=== PATIENT | female | born 1980 | race Asian ===

== ENCOUNTER 2017-11-15 17:49 | Emergency (ER) | payer BC ==
[~2017-11-15] VITALS: Ht 149.9 cm; Wt 79.4 kg
[2017-11-15 18:21] VITALS: BP 139/84; TEMP 98.1
== END 2017-11-15 18:22 | disposition home or self-care (01) ==
LOC: ED 17:49
DX: M54.9 Dorsalgia, unspecified (principal)
CPT/HCPCS: 99281

== ENCOUNTER 2018-10-24 09:52 | Outpatient (CLI) | payer BC | END 2018-10-24 19:03 | disposition home or self-care (01) | LOC: RAD 09:52 | DX: R06.02 Shortness of breath (principal) ==

== ENCOUNTER 2018-11-23 17:05 | Emergency (ER) | payer BC ==
[~2018-11-23] VITALS: Ht 149.9 cm; Wt 81.2 kg
[2018-11-23 18:59] LABS: PLATELET COUNT 362 K/uL (152-353)
[2018-11-23 19:28] VITALS: BP 129/74; TEMP 99.1
== END 2018-11-23 19:29 | disposition home or self-care (01) ==
LOC: ED 17:05
PROVIDERS: Emergency Medicine
DX: B34.9 Viral infection, unspecified (principal); J45.909 Unspecified asthma, uncomplicated
CPT/HCPCS: 85027; 94664; 99285

== ENCOUNTER 2021-06-17 09:58 | Outpatient (CLI) | payer BC | END 2021-06-17 19:36 | disposition home or self-care (01) | LOC: MAMMO 09:58 | PROVIDERS: ATTEND Obstetrics & Gynecology | DX: Z12.31 Encounter for screening mammogram for malignant neoplasm of breast (principal) ==

== ENCOUNTER 2021-07-07 09:30 | Outpatient (CLI) | payer BC, OTHER | END 2021-07-07 20:36 | disposition home or self-care (01) | LOC: LAB 09:30 | PROVIDERS: ATTEND Family Medicine | DX: U07.1 COVID-19 (principal); Z03.818 Encounter for observation for suspected exposure to other biological agents ruled out | CPT/HCPCS: 87635; G2023; U0003 ==

== ENCOUNTER 2021-07-21 09:40 | Outpatient (CLI) | payer BC, OTHER | END 2021-07-21 20:09 | disposition home or self-care (01) | LOC: LAB 09:40 | PROVIDERS: ATTEND Nurse Practitioner Family | DX: Z03.818 Encounter for observation for suspected exposure to other biological agents ruled out (principal) | CPT/HCPCS: 87635; G2023; U0003 ==

== ENCOUNTER 2021-11-16 15:13 | Emergency (ER) | payer BC ==
[~2021-11-16] VITALS: Ht 149.9 cm; Wt 72.6 kg
[2021-11-16 16:06] VITALS: TEMP 98.2
[2021-11-16 18:05] LABS: PLATELET COUNT 409 K/uL (152-353)
[2021-11-16 18:14] LABS: POTASSIUM 3.7 mmol/L (3.6-5.2)
[2021-11-16 20:00] VITALS: BP 114/81
== END 2021-11-16 20:20 | disposition home or self-care (01) ==
LOC: ED 15:13
PROVIDERS: Emergency Medicine
DX: B34.9 Viral infection, unspecified (principal); J06.9 Acute upper respiratory infection, unspecified; Z20.822 Contact with and (suspected) exposure to COVID-19
CPT/HCPCS: 80053; 85027; 87502; 87635; 87651; 96372; 99283; J1885; U0003

== ENCOUNTER 2022-07-27 10:09 | Outpatient (CLI) | payer BC | END 2022-07-27 23:23 | disposition home or self-care (01) | LOC: MAMMO 10:09 | PROVIDERS: ATTEND Family Medicine | DX: Z12.31 Encounter for screening mammogram for malignant neoplasm of breast (principal) ==

== ENCOUNTER 2022-10-18 01:00 | Emergency (ER) | payer BC ==
[~2022-10-18] VITALS: Ht 149.9 cm; Wt 74.8 kg
[2022-10-18 01:05] VITALS: BP 129/80; TEMP 98
[2022-10-18 02:04] LABS: POTASSIUM 3.4 mmol/L (3.6-5.2)
[2022-10-18 02:11] LABS: PLATELET COUNT 443 K/uL (152-353)
== END 2022-10-18 05:12 | disposition home or self-care (01) ==
LOC: ED 01:00
PROVIDERS: Emergency Medicine Emergency Medical Services
DX: U07.1 COVID-19 (principal); R07.89 Other chest pain; J20.9 Acute bronchitis, unspecified; Z20.822 Contact with and (suspected) exposure to COVID-19
CPT/HCPCS: 36415; 80053; 84484; 85027; 85610; 87502; 87635; 87651; 93005; 96360; 96365; 99284; J0696; U0003

== ENCOUNTER 2023-05-20 04:48 | Emergency (ER) | payer BC ==
[~2023-05-20] VITALS: Ht 149.9 cm; Wt 63.5 kg
[2023-05-20 04:50] VITALS: TEMP 98.5
[2023-05-20] MEDS ORDERED: AMITRIPTYLINE H50 MG PO (05:08)
[2023-05-20] MEDS ORDERED: ONDANSETRON4 M2 PO (05:08)
[2023-05-20] MEDS ORDERED: NURTEC75 MG PO (05:08)
[2023-05-20] MEDS ORDERED: LEVEMIR FL100 UNIT/M SC (05:09)
[2023-05-20] MEDS ORDERED: LIPITOR10 MG PO (05:09)
[2023-05-20] MEDS ORDERED: LORATADINE10 MG PO (05:12)
[2023-05-20 06:05] LABS: PLATELET COUNT 396 K/uL (152-353)
[2023-05-20 06:08] LABS: POTASSIUM 3.1 mmol/L (3.6-5.2)
[2023-05-20 13:16] VITALS: BP 102/64
== END 2023-05-20 13:20 | disposition left against medical advice (07) ==
LOC: ED 04:48
PROVIDERS: Family Medicine
DX: H81.10 Benign paroxysmal vertigo, unspecified ear (principal)
CPT/HCPCS: 36415; 80053; 85027; 96361; 96365; 96372; 96375; 99284; J2060; J2405; J2550; J3490